=== PATIENT | male | born 1990 | race Caucasian/White ===

== ENCOUNTER 2017-09-15 09:36 | Emergency (ER) | payer OTHER ==
[2017-09-15] MEDS ORDERED: SODIUM CHLORIDE 0.9% 1,000 ML IV STA (09:53)
--- NOTE | 2017-09-15 09:58 | ED ---
General Adult HPI - General Chief complaint: GI Bleed Stated complaint: Coughing blood, Syncope Time Seen by Provider: 09/15/17 09:43 Source: patient, RN notes reviewed, old records reviewed Mode of arrival: wheelchair Limitations: no limitations - History of Present Illness Initial comments: Patient is a 27 year male presents emergency Department chief complaint of episodes of vomiting, dizziness and lightheadedness. He reportsvomiting he threw up blood. Patient reports that he had some abdominal pain at that time reports no abdominal pain currently. He reports or diarrhea. He does complain of a headache and fatigue. - Related Data Previous Rx's Medication Instructions Recorded Famotidine [Pepcid] 20 mg PO BID #20 tablet 09/15/17 Ondansetron Odt [Zofran Odt] 4 mg PO Q8HR PRN #12 tab 09/15/17 Allergies Allergy/AdvReac Type Severity Reaction Status Date / Time No Known Allergies Allergy Verified 09/15/17 09:57 Review of Systems ROS Statement: Those systems with pertinent positive or pertinent negative responses have been documented in the HPI. ROS Other: All systems not noted in ROS Statement are negative. Eyes: Denies: eye pain ENT: Denies: ear pain, throat pain Respiratory: Denies: cough Cardiovascular: Denies: chest pain Endocrine: Reports: fatigue Gastrointestinal: Reports: nausea, vomiting, diarrhea. Denies: abdominal pain Genitourinary: Denies: urgency, dysuria Musculoskeletal: Denies: back pain Skin: Denies: lesions Past Medical History Past Medical History: No Reported History History of Any Multi-Drug Resistant Organisms: None Reported Past Surgical History: No Surgical Hx Reported Past Psychological History: Anxiety, Depression Smoking Status: Former smoker Past Alcohol Use History: Occasional Past Drug Use History: Marijuana General Exam - General Exam Comments Initial Comments: 27-year-old male. No distress. Limitations: no limitations General appearance: alert, in no apparent distress Head exam: Present: atraumatic, normocephalic, normal inspection Eye exam: Present: normal appearance, PERRL, EOMI. Absent: scleral icterus, conjunctival injection, periorbital swelling ENT exam: Present: normal exam, mucous membranes moist Neck exam: Present: normal inspection. Absent: tenderness, meningismus, lymphadenopathy Respiratory exam: Present: normal lung sounds bilaterally. Absent: respiratory distress, wheezes, rales, rhonchi, stridor Cardiovascular Exam: Present: regular rate GI/Abdominal exam: Present: soft, normal bowel sounds. Absent: distended, tenderness, guarding, rebound, rigid Extremities exam: Present: normal inspection, full ROM, normal capillary refill. Absent: tenderness, pedal edema, joint swelling, calf tenderness Back exam: Present: normal inspection Neurological exam: Present: alert, oriented X3, CN II-XII intact Psychiatric exam: Present: normal affect, normal mood Skin exam: Present: warm, dry, intact, normal color. Absent: rash Course Vital Signs 09/15/17 09/15/17 09/15/17 09:38 11:14 12:02 Temperature 97.6 F 97.1 F L Pulse Rate 77 52 L 65 Respiratory 18 16 16 Rate Blood Pressure 118/76 118/67 123/72 O2 Sat by Pulse 98 99 97 Oximetry EKG Findings - EKG Comments: EKG Findings:: EKG shows sinus bradycardia ventricular a 48 minute. Cannot rule out inferior infarct age of the terminal. TN in a 160 ms. QRS duration 104. QTQTC 438/391 ms. Medical Decision Making - Medical Decision Making Patient is a 27 year male presents emergency Department chief complaint of episodes of vomiting, dizziness and lightheadedness. He reportsvomiting he threw up blood. Patient reports that he had some abdominal pain at that time reports no abdominal pain currently. He reports he thinks he passed out after vomiting. Patient has no tenderness, he appears weak related to dehydration. Labs obtained, EKG obtaiend. He reports he alwyas has bradycardia. Patient Labs were reviewed and unremarkable. He feels better after fluids, protonix, and nausea medication. Discussed likely viral gastritis, and possiblity of underlying ulcer with bloody vomiit. Discussed antacid medication and will discharge with return parameters. Patient agrees to treatment plan and will comply. - Lab Data Result diagrams: 09/15/17 10:33 09/15/17 10:33 Lab Results 09/15/17 09/15/17 09/15/17 Range/Units 10:33 10:33 10:33 WBC 7.3 (3.8-10.6) k/uL RBC 5.26 (4.30-5.90) m/uL Hgb 15.8 (13.0-17.5) gm/dL Hct 44.8 (39.0-53.0) % MCV 85.3 (80.0-100.0) fL MCH 30.0 (25.0-35.0) pg MCHC 35.1 (31.0-37.0) g/dL RDW 12.8 (11.5-15.5) % Plt Count 235 (150-450) k/uL Neutrophils % 62 % Lymphocytes % 29 % Monocytes % 4 % Eosinophils % 3 % Basophils % 1 % Neutrophils # 4.6 (1.3-7.7) k/uL Lymphocytes # 2.2 (1.0-4.8) k/uL Monocytes # 0.3 (0-1.0) k/uL Eosinophils # 0.2 (0-0.7) k/uL Basophils # 0.1 (0-0.2) k/uL PT 10.4 (9.0-12.0) sec INR 1.1 (<1.2) APTT 24.5 (22.0-30.0) sec Sodium 143 (137-145) mmol/L Potassium 4.6 (3.5-5.1) mmol/L Chloride 104 (98-107) mmol/L Carbon Dioxide 25 (22-30) mmol/L Anion Gap 14 mmol/L BUN 16 (9-20) mg/dL Creatinine 0.80 (0.66-1.25) mg/dL Est GFR (CKD-EPI)AfAm >90 (>60 ml/min/1.73 sqM) Est GFR (CKD-EPI)NonAf >90 (>60 ml/min/1.73 sqM) Glucose 109 H (74-99) mg/dL Calcium 9.9 (8.4-10.2) mg/dL Total Bilirubin 0.3 (0.2-1.3) mg/dL AST 37 (17-59) U/L ALT 100 H (21-72) U/L Alkaline Phosphatase 52 (38-126) U/L Total Protein 7.0 (6.3-8.2) g/dL Albumin 4.1 (3.5-5.0) g/dL Urine Color Urine Appearance (Clear) Urine pH (5.0-8.0) Ur Specific [place] (1.001-1.035) Urine Protein (Negative) Urine Glucose (UA) (Negative) Urine Ketones (Negative) Urine Blood (Negative) Urine Nitrite (Negative) Urine Bilirubin (Negative) Urine Urobilinogen (<2.0) mg/dL Ur Leukocyte Esterase (Negative) 09/15/17 Range/Units 10:33 WBC (3.8-10.6) k/uL RBC (4.30-5.90) m/uL Hgb (13.0-17.5) gm/dL Hct (39.0-53.0) % MCV (80.0-100.0) fL MCH (25.0-35.0) pg MCHC (31.0-37.0) g/dL RDW (11.5-15.5) % Plt Count (150-450) k/uL Neutrophils % % Lymphocytes % % Monocytes % % Eosinophils % % Basophils % % Neutrophils # (1.3-7.7) k/uL Lymphocytes # (1.0-4.8) k/uL Monocytes # (0-1.0) k/uL Eosinophils # (0-0.7) k/uL Basophils # (0-0.2) k/uL PT (9.0-12.0) sec INR (<1.2) APTT (22.0-30.0) sec Sodium (137-145) mmol/L Potassium (3.5-5.1) mmol/L Chloride (98-107) mmol/L Carbon Dioxide (22-30) mmol/L Anion Gap mmol/L BUN (9-20) mg/dL Creatinine (0.66-1.25) mg/dL Est GFR (CKD-EPI)AfAm (>60 ml/min/1.73 sqM) Est GFR (CKD-EPI)NonAf (>60 ml/min/1.73 sqM) Glucose (74-99) mg/dL Calcium (8.4-10.2) mg/dL Total Bilirubin (0.2-1.3) mg/dL AST (17-59) U/L ALT (21-72) U/L Alkaline Phosphatase (38-126) U/L Total Protein (6.3-8.2) g/dL Albumin (3.5-5.0) g/dL Urine Color Light Yellow Urine Appearance Clear (Clear) Urine pH 6.5 (5.0-8.0) Ur Specific [place] 1.008 (1.001-1.035) Urine Protein Negative (Negative) Urine Glucose (UA) Negative (Negative) Urine Ketones Negative (Negative) Urine Blood Negative (Negative) Urine Nitrite Negative (Negative) Urine Bilirubin Negative (Negative) Urine Urobilinogen <2.0 (<2.0) mg/dL Ur Leukocyte Esterase Negative (Negative) - Radiology Data Radiology results: report reviewed CXR is within normal limits. Disposition Clinical Impression: Gastritis, Nausea & vomiting Disposition: HOME SELF-CARE Condition: Good Instructions: Acute Nausea and Vomiting (ED) Additional Instructions: Patient is to rest, increase fluid intake. Follow-up with primary care provider. Take the medication as prescribed. Prescriptions: Famotidine [Pepcid] 20 mg PO BID #20 tablet Ondansetron Odt [Zofran Odt] 4 mg PO Q8HR PRN #12 tab PRN Reason: Nausea Is patient prescribed a controlled substance at discharge?: No If prescribed controlled substance>3 days was MAPS reviewed?: No When asked, does pt state using other controlled substances?: No Referrals: None,Stated [Primary Care Provider] - 1-2 days Pavithra Villegas MD [STAFF PHYSICIAN] - 1-2 days
[2017-09-15] MEDS ORDERED: PANTOPRAZOLE 40 MG/10 ML VIAL IVP STA (10:15)
[2017-09-15] MEDS ORDERED: ONDANSETRON 4 MG/2 ML VIAL IVP STA (10:15)
[2017-09-15 10:41] LABS: Basophils # (A) 0.1 k/uL (0-0.2); Basophils % (A) 1 %; Eosinophils # (A) 0.2 k/uL (0-0.7); Eosinophils % (A) 3 %; HCT 44.8 % (39.0-53.0); HGB 15.8 gm/dL (13.0-17.5); Lymphocytes # (A) 2.2 k/uL (1.0-4.8); Lymphocytes % (A) 29 %; MCHC 35.1 g/dL (31.0-37.0); MCV 85.3 fL (80.0-100.0); Mean Platelet Volume 7.3; Monocytes # (A) 0.3 k/uL (0-1.0); Monocytes % (A) 4 %; Neutrophils # (A) 4.6 k/uL (1.3-7.7); Neutrophils % (A) 62 %; Platelet Count 235 k/uL (150-450); RBC 5.26 m/uL (4.30-5.90); RDW 12.8 % (11.5-15.5); WBC 7.3 k/uL (3.8-10.6)
[2017-09-15 10:48] LABS: Appearance,Urine Clear (Clear); Bilirubin,Urine Negative (Negative); Blood,Urine Negative (Negative); Color,Urine Light Yellow; Glucose,Urine (UA) Negative (Negative); Ketones,Urine Negative (Negative); Leukocyte Esterase,Urine Negative (Negative); Nitrite,Urine Negative (Negative); PH, Urine 6.5 (5.0-8.0); Protein,Urine Negative (Negative); Specific Gravity,Urine 1.008 (1.001-1.035); Urobilinogen,Urine <2.0 mg/dL (<2.0)
[2017-09-15 10:53] LABS: INR 1.1 (<1.2); Partial Thromboplastin Time 24.5 sec (22.0-30.0); Prothrombin Time 10.4 sec (9.0-12.0)
[2017-09-15 10:59] LABS: ALT 100 U/L (21-72); AST 37 U/L (17-59); Albumin 4.1 g/dL (3.5-5.0); Alkaline Phosphatase 52 U/L (38-126); Anion Gap 14 mmol/L; Blood Urea Nitrogen 16 mg/dL (9-20); Calcium 9.9 mg/dL (8.4-10.2); Carbon Dioxide 25 mmol/L (22-30); Chloride 104 mmol/L (98-107); Glucose 109 mg/dL (74-99); Potassium 4.6 mmol/L (3.5-5.1); Sodium 143 mmol/L (137-145); Total Bilirubin 0.3 mg/dL (0.2-1.3)
--- NOTE | 2017-09-15 11:00 | XR ---
EXAMINATION TYPE: XR chest 2V DATE OF EXAM: 09/15/2017 COMPARISON: 02/13/2016 HISTORY: 27-year-old male dizzy and hemoptysis TECHNIQUE: PA and lateral views FINDINGS: Heart normal size. Aorta and pulmonary vasculature within normal limits. Stable mild diffuse intersti tial prominence. No consolidation or pleural effusion. IMPRESSION: Chronic changes, possible bronchitis or chronic asthma. No acute change seen.
[2017-09-15 11:15] VITALS: RESP 16
[2017-09-15 12:02] VITALS: BP 123/72; PULSE 65; TEMP 97.1
== END 2017-09-15 12:00 | disposition home or self-care (01) ==
LOC: EC 09:36
DX: K29.70 Gastritis, unspecified, without bleeding (principal); R00.1 Bradycardia, unspecified; R51 Headache; R53.83 Other fatigue; R42 Dizziness and giddiness; Z87.891 Personal history of nicotine dependence
CPT/HCPCS: 36415; 93005; 80053; 85025; 85610; 85730; 81003; 71046; 99285; 96374; 96375; 96361; J2405; C9113

== ENCOUNTER 2024-03-14 12:28 | Emergency (ER) | payer BC, OTHER ==
[2024-03-14 12:35] VITALS: TEMP 97.9
[2024-03-14] MEDS: SODIUM CHLORIDE 0.9% 1,000 ML IV STA (13:04)
[2024-03-14] MEDS: NITROGLYCERIN OINT 1 INCH/GM PACKET TOPICAL SCH (13:06)
[2024-03-14] MEDS: ASPIRIN 81 MG PO STA (13:08)
[2024-03-14 13:14] LABS: Basophils % (A) 1 %; Eosinophils # (A) 0.4 k/uL (0-0.7); Eosinophils % (A) 6 %; HCT 42.1 % (39.0-53.0); HGB 14.7 gm/dL (13.0-17.5); Lymphocytes # (A) 1.5 k/uL (1.0-4.8); Lymphocytes % (A) 25 %; MCH 31.1 pg (25.0-35.0); MCV 88.9 fL (80.0-100.0); Mean Platelet Volume 7.6; Monocytes # (A) 0.3 k/uL (0-1.0); Monocytes % (A) 5 %; Neutrophils # (A) 3.6 k/uL (1.3-7.7); Neutrophils % (A) 60 %; Platelet Count 241 k/uL (150-450); RBC 4.74 m/uL (4.30-5.90); RDW 12.7 % (11.5-15.5)
[2024-03-14 13:23] LABS: ALT 97 U/L (4-49); AST 50 U/L (17-59); African American GFR (CKD) >90 (>60 ml/min/1.73 sqM); Albumin 4.3 g/dL (3.5-5.0); Alkaline Phosphatase 56 U/L (38-126); Anion Gap 9 mmol/L; Blood Urea Nitrogen 17 mg/dL (9-20); Calcium 9.7 mg/dL (8.4-10.2); Carbon Dioxide 18 mmol/L (22-30); Chloride 111 mmol/L (98-107); Glucose 125 mg/dL (74-99); Magnesium 1.9 mg/dL (1.6-2.3); Non-African American GFR(CKD) >90 (>60 ml/min/1.73 sqM); Potassium 3.8 mmol/L (3.5-5.1); Sodium 138 mmol/L (137-145); Total Bilirubin 0.7 mg/dL (0.2-1.3); Total Protein 6.9 g/dL (6.3-8.2)
--- NOTE | 2024-03-14 13:25 | ED ---
General Adult HPI - General Chief complaint: Chest Pain Stated complaint: Chest pain Time Seen by Provider: 03/14/24 12:42 Source: patient, EMS, RN notes reviewed, old records reviewed Mode of arrival: EMS Limitations: no limitations - History of Present Illness Initial comments: Patient is a 33-year-old male who presents emergency department complaining of chest pain. Has a history of smoking marijuana and vaping. No other significant past medical history otherwise. States that approximately 1 hour ago he began suffering some left-sided pressure-like chest pain with radiation towards the sternum which then radiated towards the left arm and shoulder in addition to the left side of the neck. Lasted for approximately 3 minutes. Was not doing anything strenuous at that time. States he has been feeling ill lately with a cough and congestion. The symptoms mostly resolved by the time EMS arrived. He was given 3 baby aspirin by EMS as the fourth 1 was lost. Presents for further evaluation at this time. Uncertain if patient has cardiac history running the family. Presents for further evaluation at this time. He has a history of anxiety however he has had panic attacks in the past and these are not similar to his previous anxiety episodes. Does not feel anxious at this time.Patient did receive 1 nitroglycerin tablet which she states did meal make him feel better however he thinks the chest pain had subsided by the time he did receive it from EMS. - Related Data Home Medications Medication Instructions Recorded Confirmed No Known Home Medications 03/14/24 03/14/24 Allergies Allergy/AdvReac Type Severity Reaction Status Date / Time No Known Allergies Allergy Verified 03/14/24 13:50 Review of Systems ROS Statement: Those systems with pertinent positive or pertinent negative responses have been documented in the HPI. Review of Systems: CONST: Denies fever EYES: Denies blurry vision ENT: Denies nasal congestion C/V: Denies Chest pain RESP: Denies shortness of breath GI: Denies abdominal pain : Denies dysuria SKIN: Denies rash. MSK: Denies joint pain. NEURO: Denies headache ROS Other: All systems not noted in ROS Statement are negative. Past Medical History Past Medical History: No Reported History History of Any Multi-Drug Resistant Organisms: None Reported Past Surgical History: No Surgical Hx Reported Past Psychological History: Anxiety, Depression Smoking Status: Vaper Past Alcohol Use History: None Reported Past Drug Use History: Marijuana General Exam - General Exam Comments Initial Comments: General: Appears in no acute distress. HEAD: Normal with no signs of head trauma. EYES: PERRLA, EOMI, conjunctiva normal, no discharge. ENT: Hearing grossly intact, normal oropharynx. RESPIRATORY: Clear breath sounds bilaterally. No wheezes, rales, or rhonchi. C/V: Regular rate and rhythm. S1 and S2 auscultated, no edema, peripheral pulses 2+ and intact throughout ABD: Abd is soft, nontender, nondistended EXT: Normal range of motion, no obvious deformity SKIN: No rashes or lesions observed on exposed skin. NEURO: Alert and oriented x 4. Cranial nerves II-XII intact. No focal sensory or strength deficits. Limitations: no limitations Course Vital Signs 03/14/24 03/14/24 03/14/24 12:31 13:56 16:14 Temperature 97.9 F Pulse Rate 69 61 75 Respiratory 20 18 18 Rate Blood Pressure 117/84 104/68 115/67 O2 Sat by Pulse 99 95 97 Oximetry Medical Decision Making - Medical Decision Making Was pt. sent in by a medical professional or institution (, PA, TEACHING FELLOW, urgent care, hospital, or prison...) When possible be specific @ -No Did you speak to anyone other than the patient for history (EMS, parent, family, police, friend...)? What history was obtained from this source @ -No Did you review nursing and triage notes (agree or disagree)? Why? @ -I reviewed and agree with nursing and triage notes Were old charts reviewed (outside hosp., previous admission, EMS record, old EKG, old radiological studies, urgent care reports/EKG's, prison records)? Report findings @ -Reviewed EKG from August 2017 with no significant change at this time. Differential Diagnosis (chest pain, altered mental status, abdominal pain women, abdominal pain men, vaginal bleeding, weakness, fever, dyspnea, syncope, headache, dizziness, GI bleed, back pain, seizure, CVA, palpatations, mental health, musculoskeletal)? @ -Differential Chest Pain: Stable Angina, Unstable Angina, STEMI, NSTEMI Aortic Dissection, Pneumothorax, Musculoskeletal, Esophageal Spasm GERD, Cholecystitis, Pancreatitis, Zoster, this is not meant to be an all-inclusive list. EKG interpreted by me (3pts min.). @ -As above X-rays interpreted by me (1pt min.). @ -Chest x-ray reveals no obvious acute cardiopulmonary process. CT interpreted by me (1pt min.). @ -None done U/S interpreted by me (1pt. min.). @ -None done What testing was considered but not performed or refused? (CT, X-rays, U/S, labs)? Why? @ -None What meds were considered but not given or refused? Why? @ -None Did you discuss the management of the patient with other professionals (professionals i.e. , PA, TEACHING FELLOW, lab, RT, psych nurse, social media analyst, plateman, teacher, jailer/training officer, rn case mgr)? Give summary @ -No Was smoking cessation discussed for >3mins.? @ -No Was critical care preformed (if so, how long)? @ -No Were there social determinants of health that impacted care today? How? (Homelessness, low income, unemployed, alcoholism, drug addiction, transportation, low edu. Level, literacy, decrease access to med. care, long term, rehab)? @ -No Was there de-escalation of care discussed even if they declined (Discuss DNR or withdrawal of care, Hospice)? DNR status @ -No What co-morbidities impacted this encounter? (DM, HTN, Smoking, COPD, CAD, Cancer, CVA, ARF, Chemo, Hep., AIDS, mental health diagnosis, sleep apnea, morbid obesity)? @ -None Was patient admitted / discharged? Hospital course, mention meds given and route, prescriptions, significant lab abnormalities, going to OR and other pertinent info. @ -Based on the patient's presentation and physical exam, presents emergency department complaining of chest pain. Currently is symptom-free. Nitro may have helped with his symptoms. Nitropaste will be applied in addition to giving the patient an additional 81 mg aspirin. Cardiac workup will be obtained. Vitals within acceptable limits. He was in agreement this plan. EKG shows no signs of acute ischemia. Laboratory studies unremarkable. This includes D-dimer that is within acceptable limits, undetectable troponin, viral swabs within normal limits. Chest x-ray shows no obvious acute cardiopulmonary process. On reevaluation, at this time I did offer observation admission. He would prefer to go home. Nitropaste was therefore removed as it really had no effect either way. He has been asymptomatic since arrival to the ER. I did inform him that I recommend at least staying for a second troponin which she was amenable to. We will also repeat EKG. We will continue to observe. If symptoms return I will be notified. He was in agreement this plan. Second troponin at the 3-hour filipe is undetectable. Repeat EKG shows no obvious acute ischemic process. No dynamic changes when compared with EKG from earlier. I discussed the results with the patient. He remains asymptomatic. He would still like to go home. I believe this is reasonable at this time. Heart score is 3. Strict return precautions discussed. He will follow-up with her PCP next week. I instructed the patient to follow up with their PCP in the next 1-3 days. I explained that the patient should return to the emergency department if they experience any worsening symptoms. Strict return precautions were discussed with the patient. The patient expressed understanding of these instructions. I answered all questions that the patient had. The patient was discharged home in good condition with their prescriptions and follow up information. Undiagnosed new problem with uncertain prognosis? @ -No Drug Therapy requiring intensive monitoring for toxicity (Heparin, Nitro, Insulin, Cardizem)? @ -No Were any procedures done? @ -No Diagnosis/symptom? @ -Chest pain Acute, or Chronic, or Acute on Chronic? @ -Acute Uncomplicated (without systemic symptoms) or Complicated (systemic symptoms)? @ -Complicated Side effects of treatment? @ -None Exacerbation, Progression, or Severe Exacerbation] @ -No Poses a threat to life or bodily function? @ -Unlikely at this time - Lab Data Result diagrams: 03/14/24 13:00 03/14/24 13:00 Lab Results 03/14/24 03/14/24 03/14/24 Range/Units 12:59 13:00 13:00 WBC 6.0 (3.8-10.6) k/uL RBC 4.74 (4.30-5.90) m/uL Hgb 14.7 (13.0-17.5) gm/dL Hct 42.1 (39.0-53.0) % MCV 88.9 (80.0-100.0) fL MCH 31.1 (25.0-35.0) pg MCHC 35.0 (31.0-37.0) g/dL RDW 12.7 (11.5-15.5) % Plt Count 241 (150-450) k/uL MPV 7.6 Neutrophils % 60 % Lymphocytes % 25 % Monocytes % 5 % Eosinophils % 6 % Basophils % 1 % Neutrophils # 3.6 (1.3-7.7) k/uL Lymphocytes # 1.5 (1.0-4.8) k/uL Monocytes # 0.3 (0-1.0) k/uL Eosinophils # 0.4 (0-0.7) k/uL Basophils # 0.0 (0-0.2) k/uL PT 11.1 (10.0-12.5) sec INR 1.0 (<1.2) APTT 27.6 (22.0-30.0) sec D-Dimer 0.24 (<0.60) mg/L FEU Sodium (137-145) mmol/L Potassium (3.5-5.1) mmol/L Chloride (98-107) mmol/L Carbon Dioxide (22-30) mmol/L Anion Gap mmol/L BUN (9-20) mg/dL Creatinine (0.66-1.25) mg/dL Est GFR (CKD-EPI)AfAm (>60 ml/min/1.73 sqM) Est GFR (CKD-EPI)NonAf (>60 ml/min/1.73 sqM) Glucose (74-99) mg/dL Calcium (8.4-10.2) mg/dL Magnesium (1.6-2.3) mg/dL Total Bilirubin (0.2-1.3) mg/dL AST (17-59) U/L ALT (4-49) U/L Alkaline Phosphatase (38-126) U/L Troponin I (0.000-0.034) ng/mL NT-Pro-B Natriuret Pep pg/mL Total Protein (6.3-8.2) g/dL Albumin (3.5-5.0) g/dL Influenza Type A (PCR) Not Detected (Not Detectd) Influenza Type B (PCR) Not Detected (Not Detectd) RSV (PCR) Not Detected (Not Detectd) SARS-CoV-2 (PCR) Not Detected (Not Detectd) 03/14/24 03/14/24 03/14/24 Range/Units 13:00 13:00 16:00 WBC (3.8-10.6) k/uL RBC (4.30-5.90) m/uL Hgb (13.0-17.5) gm/dL Hct (39.0-53.0) % MCV (80.0-100.0) fL MCH (25.0-35.0) pg MCHC (31.0-37.0) g/dL RDW (11.5-15.5) % Plt Count (150-450) k/uL MPV Neutrophils % % Lymphocytes % % Monocytes % % Eosinophils % % Basophils % % Neutrophils # (1.3-7.7) k/uL Lymphocytes # (1.0-4.8) k/uL Monocytes # (0-1.0) k/uL Eosinophils # (0-0.7) k/uL Basophils # (0-0.2) k/uL PT (10.0-12.5) sec INR (<1.2) APTT (22.0-30.0) sec D-Dimer (<0.60) mg/L FEU Sodium 138 (137-145) mmol/L Potassium 3.8 (3.5-5.1) mmol/L Chloride 111 H (98-107) mmol/L Carbon Dioxide 18 L (22-30) mmol/L Anion Gap 9 mmol/L BUN 17 (9-20) mg/dL Creatinine 0.79 (0.66-1.25) mg/dL Est GFR (CKD-EPI)AfAm >90 (>60 ml/min/1.73 sqM) Est GFR (CKD-EPI)NonAf >90 (>60 ml/min/1.73 sqM) Glucose 125 H (74-99) mg/dL Calcium 9.7 (8.4-10.2) mg/dL Magnesium 1.9 (1.6-2.3) mg/dL Total Bilirubin 0.7 (0.2-1.3) mg/dL AST 50 (17-59) U/L ALT 97 H (4-49) U/L Alkaline Phosphatase 56 (38-126) U/L Troponin I <0.012 <0.012 (0.000-0.034) ng/mL NT-Pro-B Natriuret Pep 27 pg/mL Total Protein 6.9 (6.3-8.2) g/dL Albumin 4.3 (3.5-5.0) g/dL Influenza Type A (PCR) (Not Detectd) Influenza Type B (PCR) (Not Detectd) RSV (PCR) (Not Detectd) SARS-CoV-2 (PCR) (Not Detectd) - EKG Data -: EKG Interpreted by Me EKG Comments: 12-lead Electrocardiogram Interpretation Note EKG was reviewed and interpreted by myself. 12-lead ECG performed at 1237 is interpreted by me as revealing normal sinus rhythm at a rate of 68 beats per minute. axis is normal. NV interval is 161 ms, QRS duration is 101 ms, QTc is 404 ms. There were no ST or T wave abnormalities to suggest myocardial ischemia or injury. R wave progression across the precordium was satisfactory. Does have Q waves present in the inferior leads II, III, aVF. Overall appearance is very similar to EKG obtained in August 2017 including the Q waves. By my interpretation this EKG is non-diagnostic for acute ischemia. 12-lead Electrocardiogram Interpretation Note EKG was reviewed and interpreted by myself. 12-lead ECG performed at 1610 is interpreted by me as revealing sinus bradycardia at a rate of 54 beats per minute. [place] is normal. QRS duration is 104 ms, QTc is 387 ms, NV interval is 156 ms.. There were no ST or T wave abnormalities to suggest myocardial i schemia or injury. R wave progression across the precordium was satisfactory. Q waves redemonstrated. No dynamic changes when compared with EKG from earlier today. By my interpretation this EKG is non-diagnostic for acute ischemia. Disposition Clinical Impression: Chest pain Disposition: HOME SELF-CARE Condition: Good Instructions (If sedation given, give patient instructions): Chest Pain (ED) Is patient prescribed a controlled substance at d/c from ED?: No Referrals: None,Stated [Primary Care Provider] - 1-2 days Lan Olea MD [STAFF PHYSICIAN] - 1-2 days Forms: Area PCPs Time of Disposition: 16:55
[2024-03-14 13:26] LABS: Partial Thromboplastin Time 27.6 sec (22.0-30.0); Prothrombin Time 11.1 sec (10.0-12.5)
[2024-03-14 13:31] LABS: NT-Pro-B-Type Natriuretic Pept 27 pg/mL
--- NOTE | 2024-03-14 14:35 | XR ---
EXAMINATION TYPE: XR chest 2V DATE OF EXAM: 03/14/2024 COMPARISON: 09/15/2017 INDICATION: Chest pain TECHNIQUE: Frontal and lateral views of the chest are obtained. FINDINGS: The heart size is normal. The pulmonary vasculature is normal. The lungs are clear. IMPRESSION: 1. No acute pulmonary process. [facility], Workstation: [facility], 03/14/2024 2:33 PM
[2024-03-14 17:04] VITALS: BP 117/80; PULSE 52; RESP 16
== END 2024-03-14 17:04 | disposition home or self-care (01) ==
LOC: EC 12:28
DX: R07.89 Other chest pain (principal); F17.290 Nicotine dependence, other tobacco product, uncomplicated
CPT/HCPCS: 36415; 71046; 80053; 83735; 83880; 84484; 85025; 85379; 85610; 85730; 87636; 93005; 96360; 99285